=== PATIENT | female | born 1965 | race Caucasian/White ===

== ENCOUNTER 2018-03-24 13:14 | Day surgery (SDC) | payer OTHER ==
[~2018-03-24 13:14] MED LIST: Cyclopentolate 1% Opth Drop 2 ML BOT FS SCH; Dexamethasone 20 MG/5 ML VIAL ONE; Fluorouracil 100 MG, Enoxaparin Sodium 25 MG, EPINEPHrine 0.3 MG in Ophthalmic Irrigati... IVPB SCH; Lidocaine 1% PF 5 ML VIAL ONE; PHENYLEPHRINE-NS 100 MCG/ML 10 ML SYRINGE ONE; PROPOFOL 200 MG/20 ML VIAL ONE; Phenylephrine 2.5% Ophth Soln 5 ML BOT FS SCH; ePHEDrine/0.9% NaCl/PF SYRINGE 50 mg/10 ml ONE
[2018-03-24] MEDS ORDERED: Cyclopentolate 1% Opth Drop 2 ML BOT ONE (13:35)
[2018-03-24] MEDS ORDERED: Phenylephrine 2.5% Ophth Soln 5 ML BOT ONE (13:35)
[2018-03-24] MEDS ORDERED: Fentanyl 100 MCG/2 ML VIAL ONE ×2 (15:24→17:11)
[2018-03-24] MEDS ORDERED: Midazolam HCl 2 mg/2 ml Vial ONE (15:24)
--- NOTE | 2018-03-24 17:18 | OP ---
DATE OF PROCEDURE: 03/24/2018 PREOPERATIVE DIAGNOSIS: Rhegmatogenous retinal detachment, right eye. POSTOPERATIVE DIAGNOSIS: Rhegmatogenous retinal detachment, right eye. PROCEDURE: Pars plana vitrectomy, right eye. SURGEON: Edgard Clements M.D. ANESTHESIA: General endotracheal anesthesia. COMPLICATIONS: None. PROCEDURE IN DETAIL: The patient was identified in the preoperative holding area. Appropriate infor med consent for the planned surgical procedure on the right eye had been obtained. The patient was t ransported to the operative suite where appropriate cardiopulmonary monitoring established. Local an esthesia was obtained where general endotracheal anesthesia was obtained. Local anesthesia was obtai alma with a retrobulbar block. The patient was prepped and draped in the usual sterile manner for oph thalmic surgery on the right eye. Lid speculum was placed in the right eye. The 25-gauge trocars we re placed through the conjunctiva and sclera supratemporally, inferotemporally, and supranasally. In fusion line was placed inferotemporally. Light pipe and vitreous cutter were inserted into the eye. Core vitrectomy was performed. Special attention was turned to the tear inferior temporally. Tear was excised. All traction was removed from the area of the retina. Posterior drain retinotomy was c reated on the inferior nasally inferior nasal edge, 360 laser was placed using endolaser delivery dev ice. Complete air fluid exchange was performed and the laser was completed inferotemporally. A 20 g auge sclerotomy was created superiorly and sclerotomy was suture closed with 7-0 Vicryl suture. Retr obulbar Kenalog and subconjunctival Ancef were placed. Antibiotic ointment placed, and the eye was p atched and shielded. The patient was awakened, taken to the postoperative recovery unit in good cond ition having suffered no immediate perioperative complications. DISCHARGE INSTRUCTIONS: The patient was instructed to keep patch and shield on, position left side d own. Follow up in the morning with Dr. Clements.
[2018-03-24] MEDS ORDERED: HYDROcodone/Acetaminophen 5/325 mg Tablet ONE (17:59)
== END 2018-03-24 18:40 | disposition home or self-care (01) ==
LOC: SDC 13:14
PROVIDERS: ATTEND Ophthalmology Retina Specialist
PROC: 08T43ZZ Resection of Right Vitreous, Percutaneous Approach (ICD-10-PCS; principal; 2018-03-24)
DX: H33.011 Retinal detachment with single break, right eye (principal); R13.10 Dysphagia, unspecified; E03.9 Hypothyroidism, unspecified; Z79.899 Other long term (current) drug therapy; Z88.5 Allergy status to narcotic agent; Z88.8 Allergy status to other drugs, medicaments and biological substances; Z96.1 Presence of intraocular lens
CPT/HCPCS: 96374; C1814; J0171; J1100; J1650; J2001; J2250; J2704; J3010; J9190

== ENCOUNTER 2018-06-16 07:25 | Day surgery (SDC) | payer OTHER ==
[2018-06-15 08:54] VITALS: BMI 28.3
[~2018-06-16 07:25] MED LIST changes: -Dexamethasone 20 MG/5 ML VIAL ONE; +EPINEPHrine 0.3 MG in Ophthalmic Irrigation Solution 500 ML FS SCH; -Fluorouracil 100 MG, Enoxaparin Sodium 25 MG, EPINEPHrine 0.3 MG in Ophthalmic Irrigati... IVPB SCH; -Lidocaine 1% PF 5 ML VIAL ONE; -PHENYLEPHRINE-NS 100 MCG/ML 10 ML SYRINGE ONE; -PROPOFOL 200 MG/20 ML VIAL ONE; -ePHEDrine/0.9% NaCl/PF SYRINGE 50 mg/10 ml ONE
[2018-06-16] MEDS ORDERED: Phenylephrine 2.5% Ophth Soln 5 ML BOT ONE (07:39)
[2018-06-16] MEDS ORDERED: Cyclopentolate 1% Opth Drop 2 ML BOT ONE (07:39)
[2018-06-16] MEDS ORDERED: PROPOFOL 20 ML ONE (09:10)
[2018-06-16] MEDS ORDERED: Lidocaine 2% 10 ML INJ ONE (09:10)
[2018-06-16] MEDS ORDERED: Fentanyl 100 MCG/2 ML VIAL ONE (09:10)
[2018-06-16] MEDS ORDERED: Midazolam HCl 2 mg/2 ml Vial ONE (09:10)
[2018-06-16] MEDS ORDERED: Ondansetron HCl/PF 4 MG/2 ML Vial ONE ×2 (09:10→13:04)
--- NOTE | 2018-06-16 11:42 | OP ---
DATE OF PROCEDURE: 06/16/2018 PREOPERATIVE DIAGNOSIS: Vitreous opacification, right eye. POSTOPERATIVE DIAGNOSIS: Vitreous opacification, right eye. PROCEDURE: Pars plana vitrectomy and membrane peel, right eye. SURGEON: Edgard Clements M.D. ANESTHESIA: General endotracheal anesthesia. COMPLICATIONS: None. PROCEDURE IN DETAIL: The patient was identified in the preoperative holding area. Appropriate infor med consent for the planned surgical procedure on the right eye had been obtained. The patient was t ransported to the operative suite. Appropriate cardiopulmonary monitoring established. General endo tracheal anesthesia was initiated. Local anesthesia obtained using retrobulbar modified Van Lint lid block using 50:50 mixture of 4% lidocaine and 0.75% bupivacaine. The patient was prepped and draped in the usual sterile manner for ophthalmic surgery on the right eye. Lid speculum was placed in the right eye. The 25-gauge trocars were placed in conjunctiva and sclera supratemporally, inferotempor ally and supranasally. Infusion line was placed inferotemporally. Light pipe and vitreous hairspring cutter serted into the eye. Core vitrectomy was performed. Silicone oil removal device was inserted into t he eye and silicone oil was removed. Ophthalmoscopy was used to examine the retina 360 degrees. No holes, breaks or tears were identified, remained flat. Supratemporal sclerotomy was closed with 7-0 Vicryl suture. Conjunctiva was closed with 6-0 plain gut suture. Retrobulbar Kenalog and subconjunc tival Ancef were placed. Antibiotic ointment placed and the eye was patched and shielded. The patie nt was taken to the postoperative recovery unit in good condition and suffered no immediate periopera tive complications. DISCHARGE INSTRUCTIONS: The patient was instructed to keep patch and shield on, avoid lifting or trey ding and follow up in the morning with Dr. Clements.
[2018-06-16] MEDS ORDERED: CEFAZOLIN 1 GM VIAL ONE (13:04)
[2018-06-16] MEDS ORDERED: Triamcinolone 40 MG/ML VIAL ONE (13:04)
[2018-06-16] MEDS ORDERED: Maxitrol 0.1% Opth Oint 3.5 GM TUBE ONE (13:04)
[2018-06-16] MEDS ORDERED: PROPOFOL 200 MG/20 ML VIAL ONE (13:04)
[2018-06-16] MEDS ORDERED: Lidocaine 4% PF 5 ML AMP ONE (13:04)
[2018-06-16] MEDS ORDERED: ePHEDrine/0.9% NaCl/PF SYRINGE 50 mg/10 ml ONE (13:04)
[2018-06-16] MEDS ORDERED: Lidocaine 1% PF 5 ML VIAL ONE ×2 (13:04)
[2018-06-16] MEDS ORDERED: PHENYLEPHRINE-NS 100 MCG/ML 10 ML SYRINGE ONE (13:04)
[2018-06-16] MEDS ORDERED: Bupivacaine 0.75% 10 ML AMP ONE (13:04)
== END 2018-06-16 11:45 | disposition home or self-care (01) ==
LOC: SDC 07:25
PROVIDERS: ATTEND Ophthalmology Retina Specialist
PROC: 08T43ZZ Resection of Right Vitreous, Percutaneous Approach (ICD-10-PCS; principal; 2018-06-16)
DX: H43.391 Other vitreous opacities, right eye (principal); Z88.5 Allergy status to narcotic agent; Z88.8 Allergy status to other drugs, medicaments and biological substances
CPT/HCPCS: J0171; J2250; J2405; J2704; J3010